=== PATIENT | male | born 1995 | race Caucasian/White ===

== ENCOUNTER → 2018-07-03 | Day surgery (SDC) | payer OTHER ==
[~2018-07-03] MED LIST: BENZOCAINE 20% AEROSOL SPRAY 60 GM ONE; LIDOCAINE 2% JELLY 5 ML TUBE ONE
== END ==
LOC: END 09:46
PROVIDERS: ATTEND Internal Medicine Gastroenterology
DX: K21.9 Gastro-esophageal reflux disease without esophagitis (principal)
CPT/HCPCS: 91010; J3490